=== PATIENT | female | born 1970 | race Two or more races ===

== ENCOUNTER → 2018-07-10 | Day surgery (SDC) | payer OTHER | END | disposition home or self-care (01) | LOC: CIR.AMB 07:15 | DX: N84.0 Polyp of corpus uteri (principal); D25.0 Submucous leiomyoma of uterus ==

== ENCOUNTER 2019-08-08 08:45 | Inpatient (IN) | payer OTHER ==
[~2019-08-08] VITALS: Ht 175.3 cm; Wt 68.0 kg
== END 2019-08-15 12:09 | disposition home or self-care (01) | DRG 743 ==
LOC: OB/GYN 08-13 06:24 → O/R 08-13 06:24 → SURG 08-13 08:30 → OB/GYN 08-13 11:06
PROVIDERS: ADMIT Obstetrics & Gynecology
PROC: 0UT70ZZ Resection of Bilateral Fallopian Tubes, Open Approach (ICD-10-PCS; 2019-08-13)
PROC: 0UT20ZZ Resection of Bilateral Ovaries, Open Approach (ICD-10-PCS; 2019-08-13)
PROC: 0UT90ZZ Resection of Uterus, Open Approach (ICD-10-PCS; principal; 2019-08-13 08:30)
DX: D25.1 Intramural leiomyoma of uterus (principal); D25.0 Submucous leiomyoma of uterus; D25.2 Subserosal leiomyoma of uterus; N83.11 Corpus luteum cyst of right ovary

== ENCOUNTER 2021-01-11 09:38 | Emergency (ER) | payer OTHER ==
[~2021-01-11] VITALS: Ht 165.1 cm; Wt 65.8 kg
[2021-01-11] MEDS ORDERED: IVERMECTIN3 MG PO (14:22)
[2021-01-11] MEDS ORDERED: AIRBORNE EFFER1 EACH PO (14:25)
[2021-01-11] MEDS ORDERED: KETO10TA2 PO (14:25)
== END 2021-01-11 14:29 | disposition home or self-care (01) ==
LOC: ER 09:38
DX: U07.1 COVID-19 (principal); J31.2 Chronic pharyngitis

== ENCOUNTER 2021-01-24 08:43 | Emergency (ER) | payer OTHER ==
[~2021-01-24] VITALS: Ht 165.1 cm; Wt 65.8 kg
[~2021-01-24 08:43] MED LIST: AIRBORNE EFFER1 EACH PO; IVERMECTIN3 MG PO; KETO10TA2 PO
== END 2021-01-24 12:13 | disposition home or self-care (01) ==
LOC: ER 08:43
DX: U07.1 COVID-19 (principal); R50.9 Fever, unspecified; Z86.16 Personal history of COVID-19

== ENCOUNTER → 2024-04-26 | Emergency (ER) | payer OTHER ==
[~2024-04-26] VITALS: Ht 165.1 cm; Wt 70.3 kg
[~2024-04-26] MED LIST changes: +0.9 % SODIUM CHLORIDE 1,000 ML IV ONE; +DEXAMETHASONE SODIUM PHOSPHATE 4 MG/ML VIAL IV ONE; +LevETIRAcetam 500 MG/5 ML VIAL IV ONE; +METOCLOPRAMIDE HCL 5 MG/ML VIAL IM ONE; +NIMODIPINE 30 MG CAPSULE PO ONE
[2024-04-26 11:46] LABS: HEMATOCRIT 40.6 % (36.0-45.00); MEAN CORPUSCULAR HEMOGLOBIN 31.3 pg (27.00-32.0); MEAN CORPUSCULAR HGB CONC 34.4 g/dl (32.0-36.0); PLATELET COUNT 246 K/uL (150-450); RED BLOOD COUNT 4.46 M/uL (4.00-6.00); RED CELL DISTRIBUTION WIDTH 12.4 % (11.5-14.5)
[2024-04-26 12:34] LABS: INR 0.96; PARTIAL THROMBOPLASTIN TIME 26.3 SECONDS (22.0-34.0); PROTHROMBIN TIME 10.5 SECONDS (9.0-11.5)
[2024-04-26 12:37] LABS: ALBUMIN 4.1 gm/dL (3.4-5.0); BILIRUBIN TOTAL 0.67 mg/dL (0.3-1.2); CALCIUM 9.6 mg/dL (8.5-10.1); CREATININE SERUM 0.77 mg/dL (0.55-1.02); GFR 78.41; POTASSIUM 3.33 mEq/L (3.5-5.1); TOTAL PROTEIN 8.1 gm/dL (6.4-8.2)
[2024-04-26 13:30] LABS: PH,URINE 7.5 (5.0-8.0); URINE APPEARANCE Clear; URINE BILIRRUBIN Negative (NEGATIVE); URINE BLOOD Negative; URINE COLOR Yellow; URINE GLUCOSE Negative (NEGATIVE); URINE KETONE Negative (NEGATIVE); URINE LEUKOCYTE Negative; URINE NITRATE Negative; URINE PROTEIN Negative (NEGATIVE); URINE UROBILINOGEN 0.2 E.U./dl
[2024-04-26 13:34] LABS: URINE BACTERIA 21.3 uL (0.0-1933); URINE WBC 3.2 uL (0.0-23.2)
[2024-04-26 14:38] LABS: URINE EPITHELIAL CELLS 0.9 uL (0.0-38.8)
== END | disposition designated cancer center or children's hospital (05) ==
LOC: ER 11:09
PROVIDERS: General Practice
DX: I61.8 Other nontraumatic intracerebral hemorrhage (principal); Z20.822 Contact with and (suspected) exposure to COVID-19; Z88.8 Allergy status to other drugs, medicaments and biological substances
CPT/HCPCS: 70551

== ENCOUNTER 2024-07-11 10:05 | Emergency (ER) | payer OTHER ==
[~2024-07-11] VITALS: Ht 165.1 cm; Wt 66.2 kg
[~2024-07-11 10:05] MED LIST changes: -0.9 % SODIUM CHLORIDE 1,000 ML IV ONE; -DEXAMETHASONE SODIUM PHOSPHATE 4 MG/ML VIAL IV ONE; -LevETIRAcetam 500 MG/5 ML VIAL IV ONE; -METOCLOPRAMIDE HCL 5 MG/ML VIAL IM ONE; -NIMODIPINE 30 MG CAPSULE PO ONE
[2024-07-11] MEDS ORDERED: cloNIDine HCL 0.2 MG TABLET PO ONE (10:45)
[2024-07-11] MEDS ORDERED: CLONIDINE HCL 0.1 MG TABLET PO ONE (10:46)
== END 2024-07-11 15:05 | disposition home or self-care (01) ==
LOC: ER 10:07
DX: I10 Essential (primary) hypertension (principal); Z88.8 Allergy status to other drugs, medicaments and biological substances; Z86.73 Personal history of transient ischemic attack (TIA), and cerebral infarction without residual deficits

== ENCOUNTER 2024-07-23 10:17 | Outpatient (CLI) | payer OTHER | END 2024-07-23 10:33 | disposition home or self-care (01) | LOC: MRI 10:17 | PROVIDERS: ATTEND Anesthesiology | DX: I61.9 Nontraumatic intracerebral hemorrhage, unspecified (principal) | CPT/HCPCS: 70553 ==